=== PATIENT | female | born 1995 | race Caucasian/White ===

== ENCOUNTER 2016-10-10 20:31 | Emergency (ER) | payer OTHER ==
[~2016-10-10] VITALS: Ht 167.6 cm; Wt 74.8 kg
[2016-10-10 21:24] LABS: BASOPHIL % 0.3 % (0-2); PLATELET COUNT 151 x10^3mcL (130-400); RED CELL DISTRIBUTION WIDTH 12.7 % (11.5-14.5)
[2016-10-10 21:34] LABS: CALCIUM 8.9 mg/dL (8.5-10.1); CARBON DIOXIDE 28.3 mmol/L (21-32); CHLORIDE SERUM 103 mmol/L (98-107); CREATININE SERUM 0.9 mg/dL (0.6-1.0); GFR1 > 60 mL/min; GLUCOSE SERUM 100 mg/dL (74-106); POTASSIUM SERUM 3.5 mmol/L (3.5-5.1); SODIUM SERUM 140 mmol/L (136-145)
[2016-10-10 21:39] LABS: ALKALINE PHOSPHATASE 98 U/L (46-116); ALT/SGPT 26 U/L (14-59); AST/SGOT 30 U/L (15-37); BILIRUBIN TOTAL 0.99 mg/dL (0.20-1.00); TOTAL PROTEIN, SERUM 7.4 g/dL (6.4-8.2)
[2016-10-10 22:02] LABS: AMPHETAMINE QUAL UR NONE DETECTED (NEG <=1000)
[2016-10-11 01:20] VITALS: BP 108/78
== END 2016-10-11 01:20 | disposition home or self-care (01) ==
LOC: ED 20:31
PROVIDERS: Emergency Medicine
DX: G40.409 Other generalized epilepsy and epileptic syndromes, not intractable, without status epilepticus (principal); F41.9 Anxiety disorder, unspecified; Z79.3 Long term (current) use of hormonal contraceptives
CPT/HCPCS: G0480; J2060; J7030; Q0092